=== PATIENT | male | born 1980 | race Caucasian/White ===

== ENCOUNTER 2019-05-08 00:59 | Emergency (ER) | payer BC ==
--- NOTE | 2019-05-08 03:11 | RADIOLOGY REPORT (SQ) ---
EXAM DESCRIPTION: COMPLETE LUMBOSACRAL SPINE SERIES CLINICAL HISTORY: FALL/PAIN COMPARISON: None. FINDINGS: AP, lateral, coned-down lateral, and bilateral oblique radiographs of the lumbar spine were submitted. There are five true lumbar vertebral bodies. There is spina bifida occulta of L5. The bony pedicles are unremarkable. There is bilateral spondylolysis of L5 with grade 1 spondylolisthesis at L5-S1. The lumbar alignment is otherwise normal. There is moderate to severe degenerative disc disease at L5-S1. The other lumbar disc heights are normal. The lumbar vertebral bodies are normal in height. There are old grade 1 compression fractures or deformities of T11 and T12 with slight anterior wedging. IMPRESSION: No acute abnormalities are identified radiographically. Bilateral spondylolysis of L5 with grade 1 spondylolisthesis and moderate to severe degenerative disc disease at L5-S1. Old grade 1 compression fractures or deformities of T11 and T12. Spina bifida occulta of L5.
[2019-05-08] MEDS ORDERED: MORPHINE SULFATE 10 MG/ML INJ IM ONE ×2 (05:08→08:40)
--- NOTE | 2019-05-08 05:10 | ER Document Report ---
ED Medical Screen (RME) - General Chief Complaint: Back Pain Stated Complaint: BACK PAIN Time Seen by Provider: 05/08/19 04:33 Notes: 39-year-old male with chief complaint of a fall 2 days ago where he landed on his back, he states he fell when trying to navigate steps. States he hurts severely in his lumbar spine with radiation down both legs. He states he is unable to walk because of the severe pain. He is on morphine, oxycodone, and h as not completed a prednisone taper started before he fell in the first place by his provider. He denies numbness, incontinence, fever, history of IV drug abuse. TRAVEL OUTSIDE OF THE [place] IN LAST 30 DAYS: No - Related Data Allergies/Adverse Reactions: Sulfa (Sulfonamide Antibiotics) Allergy (Verified 09/07/12 14:39) Past Medical History - Past Medical History Cardiac Medical History: Reports: Hx Hypertension Psychiatric Medical History: Reports: Hx Anxiety, Hx Attention Deficit Hyperactivity Disorder Past Surgical History: Reports: Hx Tonsillectomy - Immunizations Hx Diphtheria, Pertussis, Tetanus Vaccination: No Physical Exam - Vital signs Vitals: Temp Pulse Resp BP Pulse Ox 97.8 F 122 H 16 147/116 H 97 05/08/19 01:21 05/08/19 01:21 05/08/19 01:21 05/08/19 01:21 05/08/19 01:21 - Back Back: Tender - There is some tenderness over the general lumbar area, there is no sign of trauma, no saddle anesthesia, patient moves lower extremity in full range of motion, normal distal neurovascular exam Course - Re-evaluation Re-evalutation: Patient was presented with his lumbar x-ray, discussed discharge options, patient states that there must be a worse injury because of how bad this is, requesting additional evaluation and management. As result additional imaging was placed, gave dose of pain medication. Patient has no neurological deficits, fever, history of IV drug abuse, he was tachycardic but he did finish 2 caffeinated sodas that are at bedside. I have greeted and performed a rapid initial assessment of this patient. A comprehensive ED assessment and evaluation of the patient, analysis of test results and completion of the medical decision making process will be conducted by additional ED providers. - Vital Signs Vital signs: Temp Pulse Resp BP Pulse Ox 97.8 F 122 H 16 147/116 H 97 05/08/19 01:21 05/08/19 01:21 05/08/19 01:21 05/08/19 01:21 05/08/19 01:21
--- NOTE | 2019-05-08 06:46 | RADIOLOGY REPORT (SQ) ---
EXAM DESCRIPTION: CT LUMBAR SPINE WITHOUT IV CONTRAST COMPLETED DATE/TME: 05/08/2019 05:08 CLINICAL HISTORY: 39 years, Male, severe lower back pain, fall COMPARISON: Plain films today's date TECHNIQUE: 314 Images stored on PACS. All CT scanners at this facility use dose modulation, iterative reconstruction, and/or weight based dosing when appropriate to reduce radiation dose to as low as reasonably achievable (ALARA). [facility]: Dose Right [facility]: CareDose [facility]: Dose Right [facility]: Teradose 4D [facility]: [employer] LIMITATIONS: None. FINDINGS: Evaluation of spinal canal contents limited due to CT technique. However, vertebral body height is preserved. Equivocal spondylolisthesis secondary to bilateral spondylolysis at the L5-S1 level. Endplate degenerative changes with ossific spurring at the L5-S1 level. Remaining disc spaces are preserved. Extraspinal anatomic structures are unremarkable IMPRESSION: Pars defects at L5-S1 with equivocal spondylolisthesis and endplate degenerative change TECHNICAL DOCUMENTATION: Quality ID # [id number]: Final reports with documentation of one or more dose reduction techniques (e.g., Automated exposure control, adjustment of the mA and/or kV according to patient size, use of iterative reconstruction technique) copyright 2011 [employer]([facility])- All Rights Reserved
[2019-05-08 07:05] LABS: APPEARANCE,URINE SLIGHTLY-CLOUDY; BILIRUBIN,URINE NEGATIVE (NEGATIVE); COLOR,URINE YELLOW; GLUCOSE, URINE NEGATIVE (NEGATIVE); KETONES,URINE TRACE mg/dL (NEGATIVE); LEUKOCYTE ESTERASE,URINE NEGATIVE (NEGATIVE); NITRITE,URINE NEGATIVE (NEGATIVE); PROTEIN,URINE 30 mg/dL (NEGATIVE); URINE SPECIFIC GRAVITY 1.024
[2019-05-08] MEDS ORDERED: DEXAMETHASONE SOD PHOS INJ 10 MG/1 ML VIAL IM ONE (08:40)
--- NOTE | 2019-05-08 08:45 | ER Document Report ---
ED General - General Chief Complaint: Back Pain Stated Complaint: BACK PAIN Time Seen by Provider: 05/08/19 04:33 Primary Care Provider: [facility] [Provider Group] - Follow up in 3-5 days HEIDY MURPHY MD [ACTIVE STAFF] - Follow up in 3-5 days Notes: 39-year-old male with history of back surgeries presents for back pain after fall 2 days ago. Patient denies any numbness to his private area, difficulty with urinating or defecating, IV drug use, fever, nausea/vomiting. TRAVEL OUTSIDE OF THE [place] IN LAST 30 DAYS: No - Related Data Allergies/Adverse Reactions: Sulfa (Sulfonamide Antibiotics) Allergy (Verified 09/07/12 14:39) Past Medical History - Social History Smoking Status: Current Every Day Smoker Family History: Reviewed & Not Pertinent Patient has suicidal ideation: No Patient has homicidal ideation: No - Past Medical History Cardiac Medical History: Reports: Hx Hypertension Psychiatric Medical History: Reports: Hx Anxiety, Hx Attention Deficit Hyperactivity Disorder Past Surgical History: Reports: Hx Tonsillectomy - Immunizations Hx Diphtheria, Pertussis, Tetanus Vaccination: No Review of Systems - Review of Systems Notes: Constitutional: Negative for fever. HENT: Negative for sore throat. Eyes: Negative for visual changes. Cardiovascular: Negative for chest pain. Respiratory: Negative for shortness of breath. Gastrointestinal: Negative for abdominal pain, vomiting or diarrhea. Genitourinary: Negative for dysuria. Musculoskeletal: Positive for back pain. Skin: Negative for rash. Neurological: Negative for headaches, weakness or numbness. 10 point ROS negative except as marked above and in HPI. Physical Exam - Vital signs Vitals: Temp Pulse Resp BP Pulse Ox 97.8 F 122 H 16 147/116 H 97 05/08/19 01:21 05/08/19 01:21 05/08/19 01:21 05/08/19 01:21 05/08/19 01:21 - Notes Notes: GENERAL: Well-appearing, well-nourished and in no acute distress. HEAD: Atraumatic, normocephalic. EYES: Extraocular movements intact, sclera anicteric, conjunctiva are normal. NECK: Normal range of motion, supple without lymphadenopathy or JVD. EXTREMITIES: Normal range of motion, no pitting or edema. No clubbing or cyanosis. BACK: No spinal tenderness. Tenderness to lumbar paraspinal muscles. NEUROLOGICAL: Cranial nerves II through XII grossly intact. Normal speech, normal gait. PSYCH: Normal mood, normal affect. SKIN: Warm, Dry, normal turgor, no rashes or lesions noted. Course - Re-evaluation Re-evalutation: 05/08/19 No rapid progression of symptoms, systemic symptoms including fevers, chills, weight loss, history of recent bacterial infection, bilateral symptoms, numbness, weakness, difficulty walking, urinary retention or bowel incontinence, personal history of cancer, immunosuppression, diabetes, known AAA, or history of IV drug use. Exam is without point tenderness over vertebral bodies, pulsatile abdominal mass, and patient has symmetric and intact lower extremity strength, sensation, and reflexes without clonus. L spine XR and CT scan negative for fracture. UA neg. Based on history and physical, I have a very low suspicion of a concerning etiology of pain including epidural compression syndrome, spinal infection, transverse myelitis, malignancy, abdominal aortic aneurysm, renal colic, acute lower extremity claudication, neurogenic claudication, ankylosing spondylitis, or other intra-abdominal process. Due to absence of concerning risk factors in history and physical as well as absence of rapidly progressive, severe, or bilateral symptoms, will defer further imaging at this point. Plan to manage conservatively with home narcotics, muscle relaxer, and follow up with pt's neurosurgeon/pCP. - Acetaminophen 650 q 4 + ibuprofen 600 q 6 - Continue normal daily activities as tolerated by pain - Instruct to follow up with primary care provider if symptoms not improving - Provide careful return precautions and concerning symptoms to watch for. - Vital Signs Vital signs: Temp Pulse Resp BP Pulse Ox 97.8 F 88 16 147/116 H 97 05/08/19 01:21 05/08/19 08:32 05/08/19 01:21 05/08/19 01:21 05/08/19 01:21 - Laboratory Laboratory results interpreted by me: 05/08/19 06:40 Urine Protein 30 H Urine Ketones TRACE H Urine Urobilinogen 2.0 H Discharge - Discharge Clinical Impression: Back pain Qualifiers: Back pain location: back pain in unspecified location Chronicity: acute Back pa in laterality: unspecified Qualified Code(s): M54.9 - Dorsalgia, unspecified Condition: Stable Disposition: HOME, SELF-CARE Instructions: Low Back Pain ([facility]) Additional Instructions: Your CT and x-rays did not show any fractures. Please continue to take your pain medication as prescribed. Please take Flexeril as as prescribed and do not drink or drive while taking as it can make you drowsy. Please follow-up with primary care doctor listed in 3 to 5 days. Please follow-up with your neurosurgeon in 1 week. Return to ER for any worsening symptoms, including worsening pain, numbness to your private area, fever, nausea/vomiting, diarrhea/constipation, inability to urinate or defecate, chest pain, shortness of breath, or any other symptoms that are concerning to you. Prescriptions: Cyclobenzaprine HCl [Flexeril 10 mg Tablet] 10 mg PO TIDP PRN #15 tab PRN Reason: Referrals: HEIDY MURPHY MD [ACTIVE STAFF] - Follow up in 3-5 days [facility] [Provider Group] - Follow up in 3-5 days
[2019-05-08 09:24] VITALS: BP 134/88
== END 2019-05-08 09:29 | disposition home or self-care (01) ==
LOC: ER 00:59
DX: M54.9 Dorsalgia, unspecified (principal); W19.XXXA Unspecified fall, initial encounter; F17.200 Nicotine dependence, unspecified, uncomplicated; I10 Essential (primary) hypertension
CPT/HCPCS: 99284; 96372; 81001; 72110; 72131; J2270; J1100

== ENCOUNTER 2019-05-09 04:15 | Emergency (ER) | payer BC ==
--- NOTE | 2019-05-09 06:10 | ER Document Report ---
ED Neck/Back Problem - General Chief Complaint: Back Pain Stated Complaint: BACK PAIN Time Seen by Provider: 05/09/19 05:16 Primary Care Provider: [facility] [Provider Group] - Follow up in 3-5 days HEIDY MURPHY MD [ACTIVE STAFF] - Follow up in 3-5 days Mode of Arrival: Medic Information source: Patient Notes: 39-year-old male presented to ED for exacerbation of his chronic back pain. He was seen yesterday for the same complaint. He states he will continue to come back until somebody fixes his back pain or tells him what is the cause of his increasing back pain. Patient is alert oriented respirations regular nonlabored speaking in full sentences. He does have chronic back pain management. He is on Flexeril and oxycodone. He did receive morphine and steroids yesterday and stated that the pain was better for a few minutes but came right back. He states he did take ibuprofen [address] to the hospital today and he does not want anything like that now. He states he does have an appointment with his chronic pain management on . TRAVEL OUTSIDE OF THE [place] IN LAST 30 DAYS: No - HPI Patient complains to provider of: Pain, Lower back Onset: Other - 2 days he states he fell 2 days ago he has chronic back pain that is been for a long time but is been worse for 2 days Where: Home, Indoors Onset: Chronic Timing: Still present Quality of pain: Sharp, Throbbing Severity: Severe Pain Level: 5 Recent injury: Possibly - 2 days ago Associated symptoms: Like prior neck/back pain, Numbness/tingling - Is normal, Radiation to leg, Lower back pain. denies: Constipation, Incontinence Exacerbated by: Movement of trunk Relieved by: Nothing Similar symptoms previously: Yes Recently seen / treated by doctor: Yes - Related Data Allergies/Adverse Reactions: Sulfa (Sulfonamide Antibiotics) Allergy (Verified 09/07/12 14:39) Home Medications: oxycodone 10mg. flexaril. lisinopril. gabapentin-not compliant Past Medical History - General Information source: Patient - Social History Smoking Status: Current Every Day Smoker Cigarette use (# per day): Yes Chew tobacco use (# tins/day): No Frequency of alcohol use: None Drug Abuse: None Family History: Reviewed & Not Pertinent Patient has suicidal ideation: No Patient has homicidal ideation: No - Past Medical History Cardiac Medical History: Reports: Hx Hypertension Pulmonary Medical History: Reports: None EENT Medical History: Reports: None Neurological Medical History: Reports: None Endocrine Medical History: Reports: None Renal/ Medical History: Reports: None Malignancy Medical History: Reports None GI Medical History: Reports: None Musculoskeletal Medical History: Reports Hx Musculoskeletal Deformity, Reports Hx Musculoskeletal Trauma Skin Medical History: Reports None Psychiatric Medical History: Reports: Hx Anxiety, Hx Attention Deficit Hyperactivity Disorder Traumatic Medical History: Reports: None Infectious Medical History: Reports: None Past Surgical History: Reports: Hx Orthopedic Surgery - back, Hx Tonsillectomy - Immunizations Hx Diphtheria, Pertussis, Tetanus Vaccination: No Review of Systems - Review of Systems Constitutional: No symptoms reported EENT: No symptoms reported Cardiovascular: No symptoms reported Respiratory: No symptoms reported Gastrointestinal: No symptoms reported Genitourinary: No symptoms reported Male Genitourinary: No symptoms reported Musculoskeletal: Back pain, Muscle pain, Muscle stiffness Skin: No symptoms reported Hematologic/Lymphatic: No symptoms reported Neurological/Psychological: No symptoms reported -: Yes All other systems reviewed and negative Physical Exam - Vital signs Vitals: Temp Pulse Resp BP Pulse Ox 98.3 F 99 18 126/66 H 98 05/09/19 04:39 05/09/19 04:39 05/09/19 04:39 05/09/19 04:39 05/09/19 04:39 Interpretation: Normal - General General appearance: Appears well, Alert - HEENT Head: Normocephalic, Atraumatic Eyes: Normal Pupils: PERRL - Respiratory Respiratory status: No respiratory distress Chest status: Nontender Breath sounds: Normal Chest palpation: Normal - Cardiovascular Rhythm: Regular Heart sounds: Normal auscultation Murmur: No - Abdominal Inspection: Normal Distension: No distension Bowel sounds: Normal Tenderness: Nontender Organomegaly: No organomegaly - Back Back: Normal, Nontender - Extremities General upper extremity: Normal inspection, Nontender, Normal color, Normal ROM, Normal temperature General lower extremity: Normal inspection, Nontender, Normal color, Normal ROM, Normal temperature, Normal weight bearing. No: Awa's sign - Neurological Neuro grossly intact: Yes Cognition: Normal Orientation: AAOx4 Treichlers Coma Scale Eye Opening: Spontaneous John Coma Scale Verbal: Oriented Treichlers Coma Scale Motor: Obeys Commands John Coma Scale Total: 15 Speech: Normal Motor strength normal: LUE, RUE, LLE, RLE Sensory: Normal - Psychological Associated symptoms: Normal affect, Normal mood - Skin Skin Temperature: Warm Skin Moisture: Dry Skin Color: Normal Course - Re-evaluation Re-evalutation: 05/09/19 08:20 Patient was offered Toradol for his back pain and stated that he had already had ibuprofen 800. He was given muscle relaxers which she states did not do any good. He states he was seen last night and his pain relief that he was given was for very short. And that we need to figure out what was wrong with his back. He is here for chronic back pain he did have a CT that did not show any new acute problems he also had an x-ray within the last 24 hours. He was very angry that we would not give him another injection of narcotics when he is on pain management for this back pain. I did discuss this with Dr. Marquez who agreed that the patient should not be getting any more narcotics in the emergency room for his chronic problem. Patient was discharged home. - Vital Signs Vital signs: Temp Pulse Resp BP Pulse Ox 97.4 F 99 19 102/88 H 97 05/09/19 06:22 05/09/19 06:22 05/09/19 06:22 05/09/19 06:22 05/09/19 06:22 Discharge - Discharge Clinical Impression: Chronic back pain Qualifiers: Back pain location: low back pain Back pain laterality: bilateral Sciatica presence: with sciatica Sciatica laterality: bilateral sciatica Qualified Code(s): M54.42 - Lumbago with sciatica, left side Condition: Stable Disposition: HOME, SELF-CARE Additional Instructions: Chronic Pain Control Stress, inactivity, and depression make pain more severe regardless of the cause of the pain. Stress and poor physical condition can cause pain such as headaches and backache. Relaxation: Rest in a quiet place with your eyes closed for 20 minutes twice daily. Concentrate on a pleasant image, or simply "feel" your breathing. Clear your mind. Stress management: Deal with your "stressors." Either take action, or eliminate the stressor from your life. Don't let things hang over you. Accept those things you can't change. Nutrition: Eat small, balanced meals -- don't skip, don't overeat. Meals should be high-carbohydrate, low-sugar, low-fat. Exercise: Exercise helps painful conditions and eases stress. Get 30 minutes of moderate exercise, five days a week. Do an activity that does not flare your pain. Precautions: Pain which continues to disrupt daily activities, or which changes in nature, requires a medical evaluation. Pain Clinic referral is available. We do not manage chronic pain in the Emergency Department. We will try to appropriately help you through an acute flare of your chronic painful condition, but for on-going chronic pain that does not improve, you will need to see your private doctor or ornamental painter. We do not provide repeated medication management of chronic painful conditions. If you wish, we can provide the name of local pain management physicians. Chronic Back Pain Chronic back pain (pain persisting longer than three months) is a common problem. A medical evaluation can look for herniated disc, arthritis, osteoporosis, tumors, and infections. But at least half the time, there's no obvious treatable cause. Anxiety and depression tend to worsen back pain. Ibuprofen or other anti-inflammatory medicine can help. A heating pad, used for 15-20 minutes at a time, can ease pain. For this type of back pain, narcotic medicines should be avoided. Muscle relaxers are rarely helpful unless you're having spasms. Activity is important. Find an aerobic exercise program that your back can tolerate. Too much rest makes back pain worse. Specific back exercises are usually prescribed to strengthen the back and abdominal muscles. Often, a physic al therapist can help. Avoid heavy lifting, working while bent over, or standing with both knees straight. Most back pain patients do better with a firm mattress. If new symptoms of a "herniated disc" (radiation of pain, numbness, or tingling down the back of the leg or weakness in the leg) occur, you should be re-examined. ICE PACKS: Apply ice packs frequently against the painful area. Many different schedules are recommended, such as "20 minutes on, 20 minutes off" or "one hour ice, two hours rest." If you need to work, you may need to go longer between ice treatments. You should plan to have the area ice packed AT LEAST one fourth of the time. The ice should be applied over the wrap, tape, or splint, or over a layer of cloth -- not directly against the skin. Some ice bags have a built-in cloth and can be put directly on the skin. WARM PACKS: After approximately two days, apply gentle heat (such as a heating pad or hot water bottle) for about 20 to 30 minutes about every two hours -- at least four times daily. Warmth and elevation will help you make a more rapid recovery, and will ease the pain considerably. Do not use HOT heat, and never apply heat for longer than 30 minutes. The continuous heat can invisibly damage skin and muscles -- even when no burn is seen on the surface. Damaged muscles can make you MORE sore. Stretching Exercises for the Back The physician has recommended that you begin stretching exercises for your back. These are often used even while the back is painful. However, you should notify the physician if the activities seem to increase your pain. PELVIC TILT: Lie flat on your back with knees bent. Tighten your stomach and buttock muscles so it flattens your lower back against the floor. Hold 10 seconds. Repeat 10 times, twice daily. KNEE RAISE: Lying on the back with knees bent, raise one knee to your chest, then the other. Hold both knees against the chest 10 seconds, then lower one knee at a time. Repeat 10 times, twice daily. PARTIAL TRUNK RAISE: Lie face down, arms at your sides. Keeping your waist on the floor, use your arms raise your chest up. Support yourself on your elbows for 30 seconds. Repeat twice daily, increasing the time to two minutes as you recover. STEROID MEDICATION: You have been given an injection of medicine of the cortisone/steroid class. This medication is used to control inflammation or allergy. It is often continued as a pill for a short period of time, until the acute process escalona bsides. There are usually no side effects from short-term use of cortisone-like medications. Some persons feel an increased sense of well-being and are not sleepy at bedtime. Long-term use of cortisone medications is best avoided, unless required for a severe condition. If your condition does not remit, or relapses after the course of corticosteroid medication, you should consult your physician. FOLLOW-UP CARE: If you have been referred to a physician for follow-up care, call the physicians office for an appointment as you were instructed or within the next two days. If you experience worsening or a significant change in your symptoms, notify the physician immediately or return to the Emergency Department at any time for re-evaluation. Forms: Elevated Blood Pressure, Smoking Cessation Education, Return to Work Referrals: HEIDY MURPHY MD [ACTIVE STAFF] - Follow up in 3-5 days [facility] [Provider Group] - Follow up in 3-5 days
[2019-05-09] MEDS ORDERED: METHYLPREDNISOLONE INJ 125 MG/2 ML SDV IM ONE (06:13)
[2019-05-09 06:45] VITALS: BP 102/88
== END 2019-05-09 06:44 | disposition home or self-care (01) ==
LOC: ER 04:15
DX: M54.42 Lumbago with sciatica, left side (principal); G89.29 Other chronic pain; M54.9 Dorsalgia, unspecified; F17.210 Nicotine dependence, cigarettes, uncomplicated
CPT/HCPCS: 99282; 96372; J2930